=== PATIENT | female | born 1975 | race Caucasian/White ===

== ENCOUNTER 2020-07-07 09:31 | Observation (INO) ==
[~2020-07-07 09:31] MED LIST: Buffered Lidocaine 1% SYRIN 1 ml INTRADERM ONE; Lactated Ringers 1000 ml BAG 1,000 ML IV SCH
[2020-07-07] MEDS ORDERED: ceFAZolin 2 GM in NS PREMIX 2 GM/100 ML BAG IVPB ONE (09:55)
[2020-07-07] MEDS ORDERED: Lidocaine 1% w EPI 1:200,000 SDV 30 ML VIAL ONE ×3 (10:44→11:13)
[2020-07-07] MEDS ORDERED: ceFAZolin VIAL VIAL ONE ×2 (10:44→11:13)
[2020-07-07] MEDS ORDERED: Bacitracin INJECTION 50,000 UNITS ONE ×2 (10:45→11:13)
[2020-07-07] MEDS ORDERED: Remifentanil 2 MG VIAL ONE (11:14)
[2020-07-07] MEDS ORDERED: Propofol 10 MG/ML 20 ML BTL ONE ×3 (11:14→15:43)
[2020-07-07] MEDS ORDERED: Lidocaine 2% PF 5 ML VIAL ONE (11:14)
[2020-07-07] MEDS ORDERED: Midazolam 2 mg/2 ml VIAL 1 mg/ml 2 ml VIAL (2 mg) ONE (11:24)
[2020-07-07] MEDS ORDERED: fentaNYL 100 mcg/2 ml 50 MCG/ML VIAL ONE ×2 (11:24→15:57)
[2020-07-07] MEDS ORDERED: Rocuronium 50 mg VIAL 10 mg/ml 5 ml VIAL (50 mg) ONE (11:26)
[2020-07-07] MEDS ORDERED: fentaNYL 250 mcg/5 ml 50 MCG/ML 5 ml VIAL (250 MCG) ONE (12:32)
[2020-07-07] MEDS ORDERED: Propofol 10 mg/ml 100 ML BTL 100 ML ONE (12:54)
[2020-07-07] MEDS ORDERED: EPHEDrine (Pressors) 50 MG/ML VIAL ONE ×2 (13:27→15:42)
[2020-07-07] MEDS ORDERED: Gelfoam 12-7 ADSORBABL SPONGE ONE (14:14)
[2020-07-07] MEDS ORDERED: Thrombin 5,000 UNITS 1 APPLIC KIT - topical use - TOPICAL ONE (14:15)
[2020-07-07] MEDS ORDERED: Ketamine HCL 50 mg/ml 10 ml VIAL (500 MG) ONE (14:52)
[2020-07-07] MEDS ORDERED: HYDROmorphone 1 MG/1 ML SYRINGE ONE (15:36)
[2020-07-07] MEDS ORDERED: Ondansetron 4 mg VIAL 2 MG/ML 2 ml VIAL ONE (15:42)
[2020-07-07] MEDS ORDERED: Dexamethasone IV 4 MG/ML VIAL 1 ml VIAL ONE (15:42)
[2020-07-07] MEDS: fentaNYL 100 mcg/2 ml 50 MCG/ML VIAL IV PRN ×2 (15:58→16:07)
[2020-07-07] MEDS ORDERED: Polyethylene Glycol 3350 17 GM PACKET PO PRN (16:07)
[2020-07-07] MEDS ORDERED: Benzocaine/Menthol LOZ PO PRN (16:07)
[2020-07-07] MEDS ORDERED: Morphine 2 MG/ML SYRINGE IV PRN (16:13)
[2020-07-07] MEDS ORDERED: Ondansetron 4 mg VIAL 2 MG/ML 2 ml VIAL IV PRN (16:21)
[2020-07-07] MEDS ORDERED: Albuterol 2.5mg/3 ml (0.083%) NEB.SOLN INH PRN (16:34)
[2020-07-07] MEDS ORDERED: Pantoprazole VIAL 40 MG VIAL IV SCH (17:00)
[2020-07-07] MEDS: Acetaminophen IV 1 GM/100ML 100 ML IVPB SCH (18:08)
[2020-07-07] MEDS: ceFAZolin 2 GM PREMIX 2 GM/50 ML BAG IVPB SCH (19:46)
[2020-07-07] MEDS: Magnesium Hydroxide LIQ 30 ML UDC PO SCH (21:20)
[2020-07-07] MEDS: Dexamethasone IV 4 MG/ML VIAL 1 ml VIAL IV SLOW PU SCH (21:21)
[2020-07-08] MEDS: Acetaminophen IV 1 GM/100ML 100 ML IVPB SCH ×2 (02:09→10:11)
[2020-07-08] MEDS: Dexamethasone IV 4 MG/ML VIAL 1 ml VIAL IV SLOW PU SCH ×2 (04:13→10:11)
[2020-07-08] MEDS: ceFAZolin 2 GM PREMIX 2 GM/50 ML BAG IVPB SCH ×2 (04:14→11:39)
[2020-07-08] MEDS ORDERED: Albuterol HFA INHALER 8 gm MDI INH PRN (07:54)
[2020-07-08] MEDS ORDERED: Nitrofurantoin (monohydrate/macrocrystals) 100 mg CAP PO SCH (09:00)
[2020-07-08] MEDS ORDERED: Tiotropium Brom/Olodaterol MDI INH SCH (09:00)
[2020-07-08] MEDS ORDERED: Enoxaparin 40 MG/0.4 ML SYR SUBCUT SCH (09:00)
[2020-07-08] MEDS ORDERED: Vitamin THERAPEUTIC TAB PO SCH (09:00)
[2020-07-08] MEDS ORDERED: DULoxetine DR 60 mg CAP PO SCH (09:00)
[2020-07-08] MEDS ORDERED: Nicotine PATCH 21 MG/24 HR PATCH TRANSDERM SCH (09:00)
[2020-07-08] MEDS: Magnesium Hydroxide LIQ 30 ML UDC PO SCH (09:06)
[2020-07-08 11:18] VITALS: BP 124/65
[2020-07-08] MEDS ORDERED: Mometasone 220 MCG MDI INH SCH (18:00)
[2020-07-10] MEDS ORDERED: Scopolamine PATCH Remove NOTE PATCH OFF ONE (10:00)
== END 2020-07-08 12:20 | disposition home or self-care (01) ==
LOC: OR 09:31 → SSU 15:55 → INTOOBSV 15:55
PROVIDERS: ADMIT Neurological Surgery; ATTEND Neurological Surgery